=== PATIENT | female | born 1950 | race Caucasian/White ===

== ENCOUNTER 2016-11-25 09:11 | Day surgery (SDC) | payer MEDICARE ==
[~2016-11-25 09:11] MED LIST: FENTANYL 250 MCG/5 ML AMP IV PRN; LACTATED RINGERS 1,000 ML IV SCH; MIDAZOLAM HCL 5 MG/5 ML VIAL IV PRN
[2016-11-25] MEDS ORDERED: LACTATED RINGERS 1,000 ML ONE (09:25)
[2016-11-25] MEDS ORDERED: IV START KIT ONE (09:25)
[2016-11-25] MEDS ORDERED: LIDOCAINE Viscous 2% 15 ML UDCUP PO PRN (10:57)
[2016-11-25] MEDS ORDERED: MIDAZOLAM HCL 5 MG/5 ML VIAL ONE (11:02)
[2016-11-25] MEDS ORDERED: FENTANYL 5 ML ONE (11:02)
[2016-11-25 17:58] LABS: HELICOBACTER PYLORII DETECTION NEGATIVE (NEGATIVE)
--- NOTE | 2016-11-27 10:30 | SURGPATH ---
[facility] [address] [place] [id number] Patient Name: TARIK PRADO MR#: [id number] : 1950 Gender: F Specimen #: [id number] Collected: 11/25/2016 Received: 11/26/2016 Reported: 11/27/2016 Submitting Phys: BABAR WANG Copy To Phys: [facility] KATERYNA NOLEN Clinical History / Pre-Operative Diagnosis: Epigastric pain with nausea and vomiting; rule out giardia, celiac sprue and gastritis Specimen Source / Surgical Procedure Performed: #1-duodenal biopsy; #2-antral biopsy Interpretation: 1, 2. DUODENUM, GASTRIC ANTRUM, BIOPSIES: - NO PATHOLOGIC DIAGNOSIS Electronically Signed Out Tino Reynolds M.D. Gross Description: #1 The specimen is received in a formalin filled container labeled with the patient's name and "duodenal biopsy". Two calvillo biopsies are 0.3 and 0.5 cm. Totally embedded in cassette #1. #2 The specimen is received in a formalin filled container labeled with the patient's name and "antral biopsy". Two camacho-calvillo biopsies are 0.3 and 0.5 cm. Totally embedded in cassette #2. Liz Hoffman Microscopic Description: 1. Levels reveal small intestinal mucosa with a normal villous architecture. Ulceration, acute inflammation, granulomas, intraepithelial lymphocytosis, Giardia organisms, dysplasia and malignancy are not seen. 2. Levels reveal gastric mucosa with an unremarkable architecture and few chronic inflammatory cells in the lamina propria. Ulceration, acute inflammation, intestinal metaplasia, Helicobacter organisms, dysplasia and malignancy are not present. 1: 61186 2: 41497 R10.13
== END 2016-11-25 12:27 | disposition home or self-care (01) ==
LOC: SDC 09:11
PROVIDERS: ATTEND Internal Medicine Gastroenterology
PROC: 0DB98ZX Excision of Duodenum, Via Natural or Artificial Opening Endoscopic, Diagnostic (ICD-10-PCS; principal; 2016-11-25)
PROC: 0DB68ZX Excision of Stomach, Via Natural or Artificial Opening Endoscopic, Diagnostic (ICD-10-PCS; 2016-11-25)
DX: K29.70 Gastritis, unspecified, without bleeding (principal); K29.80 Duodenitis without bleeding; I10 Essential (primary) hypertension; E78.5 Hyperlipidemia, unspecified; Z88.5 Allergy status to narcotic agent; Z87.891 Personal history of nicotine dependence
CPT/HCPCS: 87081; 43239; J3010; J2250; A9270; J7120